=== PATIENT | male | born 1960 | race Caucasian/White ===

== ENCOUNTER → 2016-10-08 | Outpatient (CLI) | payer OTHER ==
[~2016-10-08] MED LIST: ASPI81TA28 PO; BENICAR PO; CLC100 PO; GABA800T PO; MAGNEVIST IV PRN; OXYC20TA50 PO; OXYC7.5T62 PO; VNTHFA/IN INH
--- NOTE | 2016-10-08 09:58 | DIAGNOSTIC IMAGING REPORT ---
MRI ABDOMEN COMBO CLINICAL HISTORY: Renal cell carcinoma. Possible liver mass. TECHNIQUE: Imaging was performed in the axial and coronal planes before and after the administration of 20 cc of intravenous Magnevist COMPARISON STUDY: No previous studies for comparison. FINDINGS: There is rectus diastases. There is a small ventral hernia. No gallbladder abnormalities are visualized. No pancreatic masses are visualized. There is no evidence of abdominal aortic dilatation. No splenic masses are visualized. No adrenal masses are visualized. There is a T2 bright 19 mm mass within the right lobe of the liver immediately beneath the dome of the diaphragm. This demonstrates peripheral nodular enhancement and is consistent with a hemangioma. There are multiple bilateral renal masses. There is a 16 mm mass arising from the lower pole the right kidney anteriorly. This demonstrates very slight contrast enhancement, and therefore this lesion should be presumed neoplastic unless proven otherwise. In addition there is a 8 mm lesion arising from the midpole the left kidney posteriorly. This also demonstrates subtle contrast enhancement, and is therefore indeterminate. The remaining small bilateral renal masses, likely represent cysts IMPRESSION: 1. 19 mm mass within the right lobe of the liver, having signal and enhancement characteristics consistent with a hemangioma. 2. Indeterminate 16 mm mass arising from the lower pole the right kidney anteriorly. This should be presumed neoplastic unless proven otherwise 3. Indeterminate 8 mm lesion arising from the midpole the left kidney posteriorly 4. Additional multiple bilateral renal lesions are felt to reflect cysts Electronically signed by: Obi Bey M.D. 10/08/2016 9:56 AM
== END | disposition home or self-care (01) ==
LOC: C.MRI 08:47
PROVIDERS: ATTEND Internal Medicine Hematology & Oncology
DX: C64.1 Malignant neoplasm of right kidney, except renal pelvis (principal); R16.0 Hepatomegaly, not elsewhere classified

== ENCOUNTER 2016-12-19 09:28 | Inpatient (IN) | payer OTHER ==
[2016-12-02 14:53] VITALS: BMI 27.0
--- NOTE | 2016-12-02 15:36 | PAT Medication Instructions ---
Service Date Dec 02, 2016. Current Home Medication List Albuterol Hfa (Ventolin Hfa), 2-4 PUFFS INH TID Aspirin (Aspirin Ec), 81 MG PO QAM Gabapentin (Neurontin), 800 MG PO TID Oxycodone Hcl (Oxycontin), 20 MG PO TID PRN for RN Oxycodone Hcl (Oxycontin), 20 MG PO TID [Benicar], 1 TAB PO QAM Medication Instructions For Your Scheduled Surgery - Hold the following medications 10 days prior to surgery per surgeon instructions: Aspirin (Aspirin Ec), 81 MG PO QAM - Hold the following medications the morning of surgery: Benicar 1 TAB PO QAM - Take the following medications the morning of surgery with a sip of water: Oxycodone Hcl (Oxycontin), 20 MG PO TID (can take up to four hours prior to surgery if needed) Gabapentin (Neurontin), 800 MG PO TID Albuterol Hfa (Ventolin Hfa), 2-4 PUFFS INH TID (bring with you to hospital on day of surgery) - Take the following medications as scheduled the night before surgery: Oxycodone Hcl (Oxycontin), 20 MG PO TID Gabapentin (Neurontin), 800 MG PO TID Albuterol Hfa (Ventolin Hfa), 2-4 PUFFS INH TID If you have any questions please call us at [phone] or [phone] ( [facility]) or [phone]
--- NOTE | 2016-12-02 16:31 | DIAGNOSTIC IMAGING REPORT ---
CHEST 2 VIEWS ROUTINE CLINICAL HISTORY: Preoperative chest COMPARISON STUDY: No previous studies for comparison. FINDINGS: The chest has an emphysematous configuration. There is no focal pulmonary consolidation. There are minor basilar atelectatic changes. There are no pleural effusions.[ IMPRESSION: Hyperinflation. Minor basilar atelectasis. No acute findings. Electronically signed by: Obi Bey M.D. 12/02/2016 4:30 PM Dictated Date/Time: 12/02/2016 4:30 PM
[2016-12-02 16:39] LABS: BASO % 0.4 %; BASO ABS # 0.05 K/uL (0-0.2); COMPLETE YES; EOS % 1.4 %; HEMATOCRIT 39.9 % (42-52); IG% 0.3 %; LYMPH % 27.2 %; LYMPH ABS # 3.08 K/uL (1.2-3.4); MEAN CELL VOLUME 90.7 fL (80-100); MEAN CORPUSCULAR HGB CONC 35.3 g/dl (32-36); MEAN PLATELET VOLUME 9.6 fL (7.4-10.4); MONO % 7.9 %; NEUT % 62.8 %; PLATELET COUNT 352 K/uL (130-400); URINE APPEARANCE CLEAR (CLEAR); URINE BILIRUBIN NEG (NEG); URINE COLOR YELLOW; URINE NITRITE NEG (NEG); URINE SPECIFIC GRAVITY 1.008 (1.000-1.030); UROBILINOGEN NEG (NEG); WHITE BLOOD COUNT 11.32 K/uL (4.8-10.8)
[2016-12-02 16:47] LABS: REVIEW REQ? NO
[2016-12-02 16:48] LABS: MANUAL MICROSCOPIC REQUIRED? NO
[2016-12-02 16:53] LABS: BUN/CREATININE RATIO 11.9 (10-20); CALCIUM 8.7 mg/dl (8.5-10.1); CREATININE 1.1 mg/dl (0.60-1.40); POTASSIUM 4.1 mmol/L (3.5-5.1)
[2016-12-19] VITALS (7 sets, daily range): BP systolic 123–153; BP diastolic 74–87; PULSE 70–79; TEMP 36.3–36.8; O2SAT 94–98; Ht 167.6 cm; Wt 75.5 kg
[~2016-12-19] VITALS: Ht 167.6 cm; Wt 75.5 kg
[~2016-12-19 09:28] MED LIST changes: +CEFAZOLIN 2000 MG/60 ML D5W IV SCH; -CLC100 PO; +LACTATED RINGER'S 1000ML 1,000 ML IV SCH; -MAGNEVIST IV PRN; -OXYC7.5T62 PO
[2016-12-19] MEDS ORDERED: CEFAZOLIN IV 2,000 MG/60 ML D5W IV ONE (10:26)
[2016-12-19] MEDS ORDERED: ONDANSETRON INJ 2 MG/ML 2 ML VIAL IV PRN ×2 (10:45→16:30)
[2016-12-19] MEDS ORDERED: MEPERIDINE HCL 25 MG/ML CARP IV PRN (10:45)
[2016-12-19] MEDS ORDERED: ATROPINE SULFATE 0.1 MG/ML 5ML SYR IV PRN (10:45)
[2016-12-19] MEDS ORDERED: LABETALOL HCL IV 5 MG/ML 20ML IV PRN (10:45)
[2016-12-19] MEDS ORDERED: EpHEDrine SULFATE INJ 50 MG/ML AMP IV PRN (10:45)
--- NOTE | 2016-12-19 11:43 | History & Physical Bridge Note ---
H&P Re-Evaluation Bridge Note: I have examined the patient, reviewed the History & Physical and in the interval since the performance of the History & Physical I have noted the following changes of clinical significance: No changes noted
[2016-12-19] MEDS ORDERED: FENTANYL CITRATE INJ 50 MCG/1 ML 2 ML VIAL ONE ×2 (12:21→14:09)
[2016-12-19] MEDS ORDERED: MIDAZOLAM HCL 1 MG/ML 2ML VIAL ONE (12:21)
[2016-12-19] MEDS ORDERED: MANNITOL 25% 50 ML VIAL ONE ×3 (12:57→14:56)
[2016-12-19] MEDS ORDERED: GELATIN SPONGE SZ 100 ONE (14:04)
[2016-12-19] MEDS ORDERED: BUPIVACAINE 0.5 % 5 MG/1 ML MPF 30ML VIAL ONE (14:04)
[2016-12-19] MEDS ORDERED: HYDROmorphone INJ 2 MG/ML SYR/VIAL ONE (14:27)
[2016-12-19] MEDS ORDERED: ONDANSETRON INJ 2 MG/ML 2 ML VIAL ONE (14:30)
[2016-12-19] MEDS ORDERED: ROCURONIUM BROMIDE 10 MG/ML 5 ML VIAL ONE (14:30)
[2016-12-19] MEDS ORDERED: PROPOFOL IV EMULSION 10 MG/ML 20 ML VIAL IV ONE (14:30)
[2016-12-19] MEDS ORDERED: DEXAMETHASONE SOD INJ 4 MG/ML VIAL ONE (14:30)
[2016-12-19] MEDS ORDERED: LIDOCAINE HCL 2% 2 ML VIAL (20MG/ML) ONE (14:30)
[2016-12-19] MEDS ORDERED: LARYING-O-JET KIT (LTA) EXT ONE ×2 (14:30)
[2016-12-19] MEDS ORDERED: SURGICEL ABSORB HEMOSTAT 2IN X 14IN TOP ONE (15:59)
[2016-12-19] MEDS ORDERED: FLOSEAL HEMOSTATIC MATRIX 10ML TOP ONE (15:59)
[2016-12-19] MEDS ORDERED: TISSEEL FIBRIN SEALANT 10ML TOP ONE (15:59)
[2016-12-19] MEDS ORDERED: PHENYLEPHRINE 100MCG/ML 5ML SYR ONE (16:03)
[2016-12-19] MEDS ORDERED: LABETALOL HCL IV 5 MG/ML 20ML IV ONE (16:03)
[2016-12-19] MEDS ORDERED: NEOSTIGMINE METHYLSULFATE 5 MG/5 ML SYR ONE (16:03)
[2016-12-19] MEDS ORDERED: GLYCOPYRROLATE INJ 0.2 MG/ML VIAL ONE (16:03)
[2016-12-19] MEDS: LACTATED RINGER'S 1000ML 1,000 ML IV SCH ×2 (16:20→22:20)
--- NOTE | 2016-12-19 16:35 | [facility] Post Operative Brief Note ---
Immediate Operative Summary Operative Date Dec 19, 2016. Pre-Operative Diagnosis Right renal cell carcinoma Post-Operative Diagnosis Same as preoperative diagnosis Procedure(s) Performed Robotic assisted laparoscopic right partial nephrectomy, lysis of adhesions Surgeon Dr. Austin Rn Ante Partum Surgeon(s) Mike Ojeda Estimated Blood Loss 250ml Findings Anterior, lower pole mass. 2 renal arteries, single renal vein. 11min clamp time. Specimens b. right renal mass Drains HANK; west Anesthesia Gen Complication(s) None Disposition Recovery Room / PACU (stable)
[2016-12-19] MEDS: FENTANYL CITRATE INJ 50 MCG/1 ML 2 ML VIAL IV PRN ×4 (16:50→17:05)
[2016-12-19 16:56] LABS: HEMATOCRIT 38.5 % (42-52); MEAN CELL VOLUME 91.9 fL (80-100); MEAN CORPUSCULAR HEMOGLOBIN 32.5 pg (25-34); MEAN PLATELET VOLUME 9.5 fL (7.4-10.4); PLATELET COUNT 295 K/uL (130-400); RED BLOOD COUNT 4.19 M/uL (4.7-6.1); WHITE BLOOD COUNT 24.64 K/uL (4.8-10.8)
[2016-12-19 17:05] LABS: MEAN CORPUSCULAR HGB CONC 35.3 g/dl (32-36)
--- NOTE | 2016-12-19 17:18 | Anesthesiology Progress Note ---
Anesthesia Post Op Note Date & Time Dec 19, 2016 at 17:18 Vital Signs Pain Intensity: 5 Vital Signs Past 12 Hours Date Time Temp Pulse Resp B/P Pulse Ox O2 Delivery O2 Flow Rate FiO2 12/19/16 17:03 72 14 12/19/16 17:03 72 14 97 12/19/16 17:01 115/76 12/19/16 16:58 73 17 12/19/16 16:58 73 17 100 12/19/16 16:56 157/79 12/19/16 16:53 75 12 100 12/19/16 16:53 74 12 12/19/16 16:51 171/88 12/19/16 16:48 74 16 99 12/19/16 16:48 76 16 12/19/16 16:46 163/98 12/19/16 16:43 75 12 12/19/16 16:43 76 12 100 12/19/16 16:41 164/95 12/19/16 16:38 73 18 12/19/16 16:38 36.5 79 18 164/95 97 Mask 10 12/19/16 16:38 79 18 97 12/19/16 10:00 36.4 70 16 127/74 95 Room Air 12/19/16 10:00 36.4 70 20 126/74 98 Room Air Notes Mental Status: alert / awake / arousable, participated in evaluation Pt Amnestic to Procedure: Yes Nausea / Vomiting: adequately controlled Pain: adequately controlled Airway Patency, RR, SpO2: stable & adequate BP & HR: stable & adequate Hydration State: stable & adequate Anesthetic Complications: no major complications apparent Pt doing well. Pain now tolerable.
[2016-12-19 17:19] LABS: BUN/CREATININE RATIO 10.2 (10-20); CREATININE 1.4 mg/dl (0.60-1.40)
[2016-12-19] MEDS: HYDROmorphone INJ 1 MG/ML SYR IV PRN ×3 (17:20→19:39)
[2016-12-19] MEDS: ACETAMINOPHEN 500 MG TAB PO SCH ×2 (18:00→23:36)
[2016-12-19] MEDS ORDERED: BENICAR PO (18:05)
[2016-12-19] MEDS: OXYCODONE/ACETAMINOPHEN 7.5-325 TAB PO PRN ×2 (18:18→23:36)
[2016-12-19] MEDS ORDERED: INFLUENZA VIRUS QUAD VACCINE 0.5 ML SYR IM. ONE (20:30)
[2016-12-19] MEDS ORDERED: INFLUENZA ADMINISTRATION CHARGE ONE (20:30)
[2016-12-19] MEDS: GABAPENTIN 800 MG TAB PO SCH (20:43)
[2016-12-19] MEDS: DOCUSATE SODIUM 100 MG CAP PO SCH (20:43)
[2016-12-19] MEDS: ALBUTEROL HFA 8 GM INHALER INH SCH (20:50)
[2016-12-19] MEDS: CEFAZOLIN IV 1,000 MG in DEXTROSE 5% 50ML 50 ML IV SCH (22:20)
--- NOTE | 2016-12-19 23:39 | OPERATIVE REPORT ---
DATE OF OPERATION: 12/19/2016 PREOPERATIVE DIAGNOSIS: Right renal cell carcinoma. POSTOPERATIVE DIAGNOSIS: Right renal cell carcinoma. PROCEDURE PERFORMED: Right robotic-assisted laparoscopic partial nephrectomy. ANESTHESIA: General. ESTIMATED BLOOD LOSS: 250 mL URINE OUTPUT: Not recorded. COMPLICATIONS: There were no complications. SPECIMEN: 1. Fat over tumor. 2. Right renal mass for routine pathology. DRAINS: 1. HANK drain. 2. Bocanegra catheter. PRIMARY SURGEON: Dr. Trey Austin. ASSISTING SURGEON: Dr. Gary Medellin. SECONDARY BAGGAGE INSPECTOR: CORAL Lopez. WARM ISCHEMIA TIME: 11 minutes. DESCRIPTION OF THE PROCEDURE: Sabino Aguirre was identified in the preoperative holding area. Appropriate informed consents were reviewed and completed, and the patient was transported to the operating suite. Upon arrival, he received appropriate preoperative antibiotics in the form of Ancef. Adequate general anesthesia was achieved and he was placed in left side down, right side up lateral decubitus position where he was padded and braced in standard fashion. 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 There was a thought at that time of ablative therapy; however, this was aborted before any ablation was actually carried out. He now is presenting for definitive treatment in the form of robotic partial nephrectomy. Following appropriate sterile prep and drape, a Veress needle was passed into the right upper quadrant, just under the tented costal margin. I insufflated the abdomen to 15 mmHg without difficulty. He of note has a substantial midline incision secondary to his prior trauma. I then used initial caution for fear of adhesions around this area and I placed a robotic camera port lateral to the rectus border, approximately 8 cm below the costal margin. This was a 12 mm Visiport and I entered with caution utilizing a 0-degree laparoscope. Inspection revealed no significant adhesions overlying the kidney or in the right lateral aspect of the abdomen. Colon was immediately seen over top of the kidney and no other gross abnormalities. As I inspected the remaining portions of the abdominal wall, my locations for robotic sites were clear of adhesions. The first of these was placed just below the costal margin at the border of the rectus muscle and another was placed approximately 8 cm inferior to the camera port and 4 cm lateral. I then returned to the midline. I inspected the location in the subxiphoid region for potential liver retractor and this was free of adhesions. His lower midline incision had minimal adhesions for the most part; however, around the umbilicus, there was small-bowel that was tacked to the inferior aspect of this. I used cold scissors to gently tease the soft abdominal wall without difficulty. Approximately 15 minutes of lysis of adhesions was required to completely free the abdominal wall adhesions. At that time, I inspected 2 midline incisions, and utilizing his old incision, I placed 1 supraumbilical 12 mm optometry assistant port, followed by a 12 mm infraumbilical optometry assistant port. I then docked the robot. I incised the white line of Toldt and the colon was medialized completely. Deep to this, I encountered the duodenum which was kocherized without difficulty until I exposed the entire anterior surface of the inferior vena cava. I was easily able to identify the gonadal vein entering into the anterior surface of the IVC after I had mobilized the duodenum. Moving just lateral to this, I elevated the inferior cone of Gerota's off the psoas muscle and dissected posteriorly to the kidney. I traced the lateral edge of the IVC up until I reached the single renal vein which was exposed entirely. Just superior to the renal vein, a relatively small caliber artery was seen protruding parallel to the vein. This was entirely exposed. Given the small caliber, I continued to look for other pulsatile structures with suspicion of a second branch that I had not yet identified. Immediately posterior to the vein, I encountered a second branch which was slightly larger in caliber from the first arterial branch I had exposed. I completely cleared this circumferentially until I felt that it was safe for a clip to be placed across it. No other large arterial structures were identified. At that time, I turned my attention to exposure of the mass. There was a small lump visible protruding and tenting Gerota's fascia on the anterior surface of the lower pole consistent with the tumor. I exposed normal-appearing renal parenchyma several centimeters lateral to this and I circumferentially exposed the remaining portion of the renal parenchyma, working from his initial incision around the tumor. I did send some of the fat over the tumor for routine pathology. After completely exposing the tumor and surrounding margin of normal renal parenchyma, I passed laparoscopic ultrasound and I inspected the tumor. I approximated depth and felt that I had a clear approach to completely resect the tumor. At that time, I turned my attention back to the hilum. We administered 12.5 grams of mannitol. I then placed a short straight bulldog across the posterior renal artery, followed by a short curved bulldog across the smaller renal artery that was just above the renal vein. I then ultimately placed a long straight clamp across the renal vein itself. Kidney blanched appropriately and I then turned my attention to resection of the mass. Utilizing my previously marked incision sites, I circumferentially cut around the tumor until it was entirely freed. I kept my incision going in regard to depth until I reached the renal sinus fat and then turned under the tumor to entirely free it. There was some venous bleeding from the deepest portions of this resection consistent with getting into one of the larger renal veins. I then utilized a V-Loc stitch in sliding clip fashion to reapproximate and perform renorrhaphy. After a single stitch was placed back and forth approximately 4 times across the defect, I was able to unclamp the vessels. We had excellent hemostasis at that time and no active bleeding. I did place a second simple interrupted V-Loc stitch through the midportion of the incision as there was a very tiny superficial ooze in this location, this was corrected with the stitch. We then placed FloSeal coagulant over the incision, followed by a third of a sheet of Surgicel and Tisseel was sprayed over the resection bed. The tumor itself was collected in an EndoCatch bag and Gerota's fascia was reapproximated with a third V-Loc stitch. Total warm ischemia clamp time was 11 minutes. Kidney appeared to perfuse appropriately following removal of the clamps. The patient tolerated the procedure very well. A drain was guided into the left lateral most robotic port. The specimen was extracted through the camera port and the fascia was closed with [id number] PDS stitches. Midline incisions through his prior incision and scar were closed with [id number] 0 Vicryl as was the superior robotic port. Skin was closed with 4-0 Monocryl and all incisions were infiltrated with 0.5% Marcaine prior to conclusion. The patient was subsequently reversed from anesthesia and taken to the PACU in stable condition. He tolerated the procedure very well. I attest to the content of the Intraoperative Record and any orders documented therein. Any exceptio ns are noted below.
[2016-12-20] MEDS: HYDROmorphone INJ 1 MG/ML SYR IV PRN ×3 (01:31→13:33)
[2016-12-20 03:10] VITALS: BP 126/87; PULSE 77; TEMP 36.6; O2SAT 97
[2016-12-20] MEDS: OXYCODONE/ACETAMINOPHEN 7.5-325 TAB PO PRN ×2 (05:24→12:32)
[2016-12-20] MEDS: CEFAZOLIN IV 1,000 MG in DEXTROSE 5% 50ML 50 ML IV SCH ×2 (05:30→13:33)
[2016-12-20] MEDS: LACTATED RINGER'S 1000ML 1,000 ML IV SCH ×2 (05:31→12:30)
[2016-12-20] MEDS: ACETAMINOPHEN 500 MG TAB PO SCH ×2 (05:32→09:18)
[2016-12-20 06:41] LABS: BASO % 0.3 %; BASO ABS # 0.05 K/uL (0-0.2); COMPLETE YES; EOS % 0.2 %; HEMATOCRIT 38.8 % (42-52); IG% 0.4 %; LYMPH ABS # 2.18 K/uL (1.2-3.4); MEAN CELL VOLUME 90.7 fL (80-100); MEAN CORPUSCULAR HEMOGLOBIN 31.3 pg (25-34); MEAN CORPUSCULAR HGB CONC 34.5 g/dl (32-36); MEAN PLATELET VOLUME 9.5 fL (7.4-10.4); MONO % 9.9 %; NEUT % 78.2 %; PLATELET COUNT 278 K/uL (130-400); RED BLOOD COUNT 4.28 M/uL (4.7-6.1); WHITE BLOOD COUNT 19.86 K/uL (4.8-10.8)
[2016-12-20 07:14] LABS: BUN/CREATININE RATIO 9.5 (10-20); CALCIUM 8.6 mg/dl (8.5-10.1); CREATININE 1.5 mg/dl (0.60-1.40); POTASSIUM 4.9 mmol/L (3.5-5.1)
[2016-12-20 08:09] VITALS: BP_SYST 102; BP_SYST 120; BP_DIAS 79; PULSE 73; TEMP 36.8; O2SAT 93
--- NOTE | 2016-12-20 08:28 | Progress Note ---
Progress Note Date of Service Dec 20, 2016. Progress Note S: Doing well - pain well controlled with meds - ambulatory - no subjective complaints O: 12/20/16 06:24 Red Blood Count 4.28, Mean Corpuscular Volume 90.7, Mean Corpuscular Hemoglobin 31.3, Mean Corpuscular Hemoglobin Concent 34.5, Mean Platelet Volume 9.5, Neutrophils (%) (Auto) 78.2, Lymphocytes (%) (Auto) 11.0, Monocytes (%) (Auto) 9.9, Eosinophils (%) (Auto) 0.2, Basophils (%) (Auto) 0.3, Neutrophils # (Auto) 15.55, Lymphocytes # (Auto) 2.18, Monocytes # (Auto) 1.97, Eosinophils # (Auto) 0.03, Basophils # (Auto) 0.05 12/20/16 06:24 Test 12/20/16 06:24 White Blood Count 19.86 K/uL (4.8-10.8) Red Blood Count 4.28 M/uL (4.7-6.1) Hemoglobin 13.4 g/dL (14.0-18.0) Hematocrit 38.8 % (42-52) Mean Corpuscular Volume 90.7 fL (80-100) Mean Corpuscular Hemoglobin 31.3 pg (25-34) Mean Corpuscular Hemoglobin Concent 34.5 g/dl (32-36) Platelet Count 278 K/uL (130-400) Mean Platelet Volume 9.5 fL (7.4-10.4) Neutrophils (%) (Auto) 78.2 % Lymphocytes (%) (Auto) 11.0 % Monocytes (%) (Auto) 9.9 % Eosinophils (%) (Auto) 0.2 % Basophils (%) (Auto) 0.3 % Neutrophils # (Auto) 15.55 K/uL (1.4-6.5) Lymphocytes # (Auto) 2.18 K/uL (1.2-3.4) Monocytes # (Auto) 1.97 K/uL (0.11-0.59) Eosinophils # (Auto) 0.03 K/uL (0-0.5) Basophils # (Auto) 0.05 K/uL (0-0.2) RDW Standard Deviation 44.2 fL (36.4-46.3) RDW Coefficient of Variation 13.4 % (11.5-14.5) Immature Granulocyte % (Auto) 0.4 % Immature Granulocyte # (Auto) 0.08 K/uL (0.00-0.02) Anion Gap 8.0 mmol/L (3-11) Est Creatinine Clear Calc Drug Dose 48.4 ml/min Estimated GFR () 58.6 Estimated GFR (Non- 50.6 BUN/Creatinine Ratio 9.5 (10-20) Calcium Level 8.6 mg/dl (8.5-10.1) Vital Signs Past 12 Hours Date Time Temp Pulse Resp B/P Pulse Ox O2 Delivery O2 Flow Rate FiO2 12/20/16 08:09 36.8 73 12 120/79 93 Room Air 12/20/16 07:34 Room Air 12/20/16 03:10 36.6 77 17 126/87 97 Room Air 12/19/16 23:45 Room Air 12/19/16 23:10 36.4 77 18 153/83 97 Room Air 12/19/16 20:48 36.3 77 18 141/87 96 Room Air NAD AAOx3 no resp distress RRR abd soft - incisions without signs of infection HANK serosang west out no edema A/P: POD #1 s/p R robo partial nephrectomy - cont ambulation - diet advance - labs stable - plan to observe through the day today, likely d/c home tomorrow
[2016-12-20 08:30] VITALS: O2SAT 96
[2016-12-20] MEDS: ALBUTEROL HFA 8 GM INHALER INH SCH ×2 (08:41→13:33)
[2016-12-20] MEDS: DOCUSATE SODIUM 100 MG CAP PO SCH (08:41)
[2016-12-20] MEDS: GABAPENTIN 800 MG TAB PO SCH ×2 (08:41→13:33)
[2016-12-20] MEDS ORDERED: ENALAPRIL MALEATE 10 MG TAB PO SCH (09:00)
[2016-12-20 11:21] VITALS: BP 133/79; PULSE 73; TEMP 36.9; O2SAT 94
[2016-12-20 14:58] VITALS: BP 119/84; PULSE 87; TEMP 36.8; O2SAT 95
[2016-12-20] MEDS ORDERED: CLC100 PO (15:03)
[2016-12-20] MEDS ORDERED: OXYC7.5T62 PO (15:03)
--- NOTE | 2016-12-20 15:07 | Discharge Instructions ---
Discharge Instructions Date of Service Dec 20, 2016. Admission Reason for Admission: Renal cell carcinoma Discharge Discharge Diagnosis / Problem: Renal cell carcinoma Discharge Goals Goal(s): Decrease discomfort, Improve function, Increase independence, Improve disease control Activity Recommendations Activity Limitations: per Instructions/Follow-up section Lifting Limitations: no more than 25 pounds Exercise/Sports Limitations: until after follow-up appointment May Resume Sexual Activity: when tolerated Shower/Bathe: no limitations Driving or Machine Use: Ok to drive after you are off of pain medications and feel comfortable and safe controlling your vehicle . Instructions / Follow-Up Instructions / Follow-Up Please keep your previously scheduled follow up appointment with Dr. Austin. Please call if you have severe right flank pain or bright red blood in your urine. Current Hospital Diet Hospital Diet(s): Clear Liquid Diet Discharge Diet Recommended Diet: Regular Diet Procedures Procedures Performed: Robotic assisted laparoscopic right partial nephrectomy, lysis of adhesions Pending Studies Studies pending at discharge: no Medical Emergencies . Who to Call and When: Medical Emergencies: If at any time you feel your situation is an emergency, please call 911 immediately. . Non-Emergent Contact Non-Emergency issues call your: Urologist Call Non-Emergent contact if: you have a fever, temperature is above 101.5, your pain is not controlled, your pain is worsening, wound has increased drainage . . "Provider Documentation" section prepared by Severo Astudillo. VTE Core Measure Inpt VTE Proph given/why not?: Treatment not tolerated [place] Drug Monitoring Program Search Results: patient reviewed within database, see additional documentation Drug Monitoring Findings: chronically on pain meds - numerous rx's in the chart
--- NOTE | 2016-12-20 15:08 | Progress Note ---
Progress Note Date of Service Dec 20, 2016. Progress Note Visited with the patient this afternoon. Subjectively feeling very well - voided after west dc - no significant change in drain quality or volume - anxious to go home - we have decided to d/c drain and d/c home this afternoon
[2016-12-20 15:27] VITALS: BP 119/84; PULSE 87; TEMP 36.8; O2SAT 95
--- NOTE | 2016-12-20 15:44 | Discharge Summary ---
Discharge Summary Date of Service Dec 20, 2016. Discharge Summary Admission Date: Dec 19, 2016 at 12:14 Discharge Date: Dec 20, 2016 Discharge Disposition: Home Principal Diagnosis: renal cell carcinoma Procedures: right robotic assisted laparoscopic partial nephrectomy Medication Reconciliation New Medications: Docusate Sodium (Docusate Sodium) 100 Mg Cap 100 MG PO BID, #30 CAP Oxycodone/Acetaminophen 7.5MG/325MG (Endocet 7.5MG/325MG) 1 Tab Tab 1-2 TAB PO Q4H PRN for severe pain (pain scale 7-10), #30 TAB Continued Medications: Albuterol Hfa (Ventolin Hfa) 200 Puffs/79326 Mcg Aers 2-4 PUFFS INH TID, #1 INHALER Aspirin (Aspirin Ec) 81 Mg Tab 81 MG PO QAM Gabapentin (Neurontin) 800 Mg Tab 800 MG PO TID, TAB Oxycodone Hcl (Oxycontin) 20 Mg Tab 20 MG PO TID PRN for RN, TAB Oxycodone Hcl (Oxycontin) 20 Mg Tab 20 MG PO TID, TAB [Benicar] () 40 MG PO DAILY Hospital Course Pt admitted for robotic partial nephrectomy, details of that procedure as dictated previously in the operative report, however, in summary, he tolerated the procedure very well. He progressed appropriately overnight. Bocanegra catheter was removed on POD#1 and he subsequently voided clear urine without difficulty. Lab evaluations were all appropriate, his pain was controlled and he was tolerating a diet. On the afternoon of POD #1, his drain was d/c'ed and he was determined to be stable for d/c home. Total time spent on discharge = This includes examination of the patient, discharge planning, medication reconciliation, and communication with other providers. Discharge Instructions Please see previously written d/c instructions
== END 2016-12-20 16:10 | disposition home or self-care (01) | DRG 658 ==
LOC: ENRESERVTM → ENRESERVDT → C.ACU 09:28 → C.MSN 12:14
PROVIDERS: ADMIT Urology; ATTEND Urology
PROC: 0TB04ZZ Excision of Right Kidney, Percutaneous Endoscopic Approach (ICD-10-PCS; principal; 2016-12-19 11:30)
PROC: 0DNW4ZZ Release Peritoneum, Percutaneous Endoscopic Approach (ICD-10-PCS; principal; 2016-12-19 11:30)
DX: C64.1 Malignant neoplasm of right kidney, except renal pelvis (principal); I10 Essential (primary) hypertension; Z79.82 Long term (current) use of aspirin; Z79.899 Other long term (current) drug therapy

== ENCOUNTER → 2018-04-24 | Outpatient (CLI) | payer OTHER ==
[~2018-04-24] MED LIST changes: -CEFAZOLIN 2000 MG/60 ML D5W IV SCH; +CLC100 PO; -LACTATED RINGER'S 1000ML 1,000 ML IV SCH; +OPTIRAY 320 IV PRN; +OXYC7.5T62 PO
--- NOTE | 2018-04-24 17:33 | DIAGNOSTIC IMAGING REPORT ---
LUMBAR SPINE CT WITH CONTRAST HISTORY: LOW BACK PAIN TECHNIQUE: Multiaxial CT images of the lumbar spine were performed and reformatted in the sagittal and coronal plane following the use of intravenous contrast. COMPARISON: None. FINDINGS: For the purpose of the report the L5-S1 disc space will be located on axial image 238 of 310. No fractures within the lumbar spine. Alignment is intact. There is posterior decompression and fusion from L4 through S1 with pedicle screws and rods. The hardware appears intact. Mild periprosthetic lucency within the bilateral S1 pedicle screws. There are disc spacers at L4-5 and L5-S1. There is no significant bony fusion at these disc spaces. Mild disc space narrowing at L1-L2, L2-L3, L3-L4 with small endplate osteophytes. There is mild levoscoliosis of the lumbar spine. There is evidence for an aortobiiliac graft. This appears to be patent. Partial resection of the lower pole of the right kidney. Multiple bilateral renal hypodense lesions are subcentimeter size and too small to characterize. The indeterminate 8 mm lesion within the left kidney does not clearly represent a simple cyst. This is better appreciated on the recent abdominal MRI. This remains stable. Evaluation of the central canal suboptimal due to the CT technique. L1-L2: Small broad-based posterior disc osteophyte complex. This results in mild central canal and mild bilateral neural foraminal narrowing. L2-L3: Small broad-based posterior disc bulge resulting in mild central canal and mild bilateral neural foraminal narrowing. L3-L4: Broad-based posterior disc bulge with ligamentum and facet hypertrophy. This results in moderate to severe central canal and moderate to severe left-sided neural foraminal narrowing. There are severe right-sided neural foraminal narrowing. L4-L5: No definite central canal narrowing due to the posterior decompression. There is moderate to severe left and severe right neural foraminal narrowing. L5-S1: Nondiagnostic evaluation of the central canal due to the metallic artifact. Moderate to severe left and severe right neural foraminal narrowing. IMPRESSION: 1. No fracture or subluxation within the lumbar spine. 2. Posterior decompression and fusion from L4 through S1. Mild periprosthetic lucency surrounding the bilateral S1 pedicle screws consistent with loosening. 3. Multilevel degenerative changes as described above. This is most pronounced at the L3-L4 level where there is moderate to severe central canal narrowing. 4. Bilateral neural foraminal narrowing, right greater than left. 5. Mild levoscoliosis of the lumbar spine. 6. No change in the 8 mm indeterminate lesion within the left kidney. Electronically signed by: Colton Sauceda M.D. 04/24/2018 5:32 PM Dictated Date/Time: 04/24/2018 5:19 PM
== END | disposition home or self-care (01) ==
LOC: C.CTS 15:11
PROVIDERS: ATTEND Physician Assistant Medical
DX: M47.816 Spondylosis without myelopathy or radiculopathy, lumbar region (principal); M48.061 Spinal stenosis, lumbar region without neurogenic claudication; M16.10 Unilateral primary osteoarthritis, unspecified hip; G89.4 Chronic pain syndrome; M46.1 Sacroiliitis, not elsewhere classified; M47.892 Other spondylosis, cervical region; M51.36 Other intervertebral disc degeneration, lumbar region; M70.61 Trochanteric bursitis, right hip; X58.XXXA Exposure to other specified factors, initial encounter; M25.511 Pain in right shoulder